=== PATIENT | female | born 1985 | race Caucasian/White ===

== ENCOUNTER 2017-05-21 23:23 | Emergency (ER) | payer SELFPAY ==
[~2017-05-21 23:23] MED LIST: PREN0.01 PO
[2017-05-21 23:48] VITALS: BP 158/79; PULSE 79; RESP 18; TEMP 98.6; O2SAT 99
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
== END 2017-05-22 02:22 | disposition left against medical advice (07) ==
LOC: NEPD 23:23
DX: R51 Headache (principal)
CPT/HCPCS: 99281